=== PATIENT | female | born 1995 | race Caucasian/White ===

== ENCOUNTER 2017-01-25 21:35 | Inpatient (IN) | payer MEDICAID ==
[2017-01-25] MEDS ORDERED: XYLOCAINE 1% HCL 20 ML MDV IJ PRN (21:55)
[2017-01-25] MEDS ORDERED: PITOCIN 30 UNITS/ LR 500 ML 500 ML IV SCH (22:00)
[2017-01-25 22:19] LABS: BASOPHIL % 0.1 % (0.0-0.4); Eosinophil % 0.3 % (0.00-5.0); Granulocytes % 65.6 % (36.0-66.0); Lymphocytes % 21.3 % (24.0-44.0); Mean Cell Volume 99.5 fl (78-100); Mean Platelet Volume 10.4 fl (6-9.5); Monocytes % 12.7 % (0.0-12.0); Platelet Count 242 K/mm3 (150-450); Red Blood Count 4.01 M/mm3 (4.1-5.4); Red Cell Distribution Width 13.2 % (11.5-14.0); White Blood Count 9.5 K/mm3 (4.0-10.5)
[2017-01-25 22:22] LABS: Mean Corpuscular Hemoglobin 33.1 pg (26-32)
[2017-01-25] MEDS ORDERED: Dermoplast Spray TP PRN (23:30)
[2017-01-25] MEDS ORDERED: Mylicon 80MG PO PRN (23:30)
[2017-01-25] MEDS ORDERED: Dulcolax 10 MG SUPP PR PRN (23:30)
[2017-01-25] MEDS ORDERED: TUCKS TP PRN (23:30)
[2017-01-25] MEDS ORDERED: NORCO 5/325 MG PO PRN (23:30)
[2017-01-25] MEDS ORDERED: Anucort-HC SUPPOSITORY PR PRN (23:30)
[2017-01-25] MEDS ORDERED: LANSINOH 40 GM TOP PRN (23:30)
[2017-01-25] MEDS ORDERED: TYLENOL EXTRA STRENGTH 500 MG PO PRN (23:30)
[2017-01-25] MEDS ORDERED: CORTISONE 1% CREAM TP PRN (23:30)
[2017-01-26] MEDS ORDERED: Lactated Ringers 1,000 ML IV SCH (05:00)
[2017-01-26 05:43] LABS: Mean Cell Volume 100.8 fl (78-100); Mean Corpuscular Hemoglobin 33.4 pg (26-32); Mean Platelet Volume 10.5 fl (6-9.5); Platelet Count 205 K/mm3 (150-450); Red Blood Count 3.65 M/mm3 (4.1-5.4); White Blood Count 12.4 K/mm3 (4.0-10.5)
[2017-01-26] MEDS: MOTRIN 400 MG PO PRN ×2 (05:57→21:57)
[2017-01-26 07:08] LABS: ANISOCYTOSIS 1+; BAND 13 % (0.0-2.0); Metamyelocyte 1 %; Platelet Estimate NORMAL (NORMAL); Total Cells Counted 100
[2017-01-26] MEDS ORDERED: Adacel Vial IM ONE (10:00)
[2017-01-26] MEDS: Colace 100 MG PO SCH ×2 (10:21→21:54)
[2017-01-26] MEDS: FERREX 150 PO SCH (10:21)
--- NOTE | 2017-01-27 08:16 | PCM.DS ---
Discharge Summary Date of Admission: 01/25/17 21:35 Admitting Physician: BOOM RIOS Primary Care Provider: BOOM RIOS Allergies Allergies penicillin G Allergy (Verified 06/28/14 00:58) UNSURE WAS TOLD BY MOTHER Hospital Summary - Hospital Course Hospital Course: patient came in spontaneous labor and delivered a viable female over intact perineum, had a 1st degree left labial laceration repair. doing great, her infant. no problems, mild lochia and pain controlled. - Vitals & Intake/Output Vital Signs: Vital Signs Temperature 98.1 F 01/26/17 20:00 Pulse Rate 75 01/26/17 20:00 Respiratory Rate 18 01/27/17 02:00 Blood Pressure 129/74 01/26/17 20:00 O2 Sat by Pulse Oximetry Intake & Output: Intake & Output 01/24/17 01/25/17 01/26/17 01/27/17 11:59 11:59 11:59 11:59 Weight 72.121 kg - Lab Result Diagrams: 01/26/17 05:05 Lab Results-Last 24 Hrs: Lab Results-Last 24 Hours 01/26/17 Range/Units 07:33 Urine Opiates Level NEG. (NEGATIVE) Ur Methadone NEG. (NEGATIVE) Urine Barbiturates NEG. (NEGATIVE) Ur Phencyclidine (PCP) NEG. (NEGATIVE) Urine Amphetamine NEG. (NEGATIVE) U Benzodiazepine Level NEG. (NEGATIVE) Urine Cocaine NEG. (NEGATIVE) Urine Marijuana (THC) NEG. (NEGATIVE) Discharge Exam General Appearance: no apparent distress, alert Skin Exam: normal color, warm, dry Respiratory Exam: normal breath sounds, lungs clear, No respiratory distress Cardiovascular Exam: regular rate/rhythm, normal heart sounds Gastrointestinal/Abdomen Exam: soft, No tenderness, No mass Extremity Exam: normal inspection, normal range of motion Final Diagnosis/Problem List - Final Discharge Diagnosis/Problem (1) Spontaneous vaginal delivery Current Visit: No Status: Acute (2) Laceration of labia majora Current Visit: Yes Status: Acute - Discharge Disposition: Home, Self-Care Condition: Stable Prescriptions: Continue Vits W-Ca,Fe,FA(<1Mg) [] 1 each PO DAILY Follow up with: BOOM RIOS MD [Primary Care Provider] - 1 Week
[2017-01-27] MEDS: FERREX 150 PO SCH (10:34)
[2017-01-27] MEDS: Colace 100 MG PO SCH ×2 (10:34→23:10)
[2017-01-27 20:09] VITALS: BP 133/81; PULSE 81
== END 2017-01-27 23:20 | disposition home or self-care (01) | DRG 775 ==
LOC: OB 21:35 → OBSVTOIN 21:35
PROVIDERS: ADMIT Family Medicine; ATTEND Family Medicine
PROC: 10E0XZZ Delivery of Products of Conception, External Approach (ICD-10-PCS; principal; 2017-01-25)
PROC: 0HQ9XZZ Repair Perineum Skin, External Approach (ICD-10-PCS; 2017-01-25)
DX: O70.0 First degree perineal laceration during delivery (principal); Z3A.38 38 weeks gestation of pregnancy; Z37.0 Single live birth
CPT/HCPCS: 36415; 80307; 85025; 90471; 90715; G0378; J2590; A9270-GY

== ENCOUNTER 2018-02-07 21:05 | Emergency (ER) | payer MEDICAID, OTHER ==
[2018-02-07] MEDS ORDERED: Fluor-I-Strip/Ful-Flo OP ONE ×2 (21:47→22:27)
[2018-02-07] MEDS ORDERED: Eye-Stream Solution OP ONE (21:47)
--- NOTE | 2018-02-07 21:52 | ERPHSYRPT ---
- History of Present Illness Time Seen by Provider: 02/07/18 21:46 Source: patient Exam Limitations: no limitations Patient Subjective Stated Complaint: PT STATES SHE DROPPED A BOTTLE OF PEROXIDE AND IT SPLASHED IN HER EYES. STATES SHE FLUSHED WITH WATER IMMED AFTER, BUT STILL HAS SOME IRRITATION AND BURNING5 1 Triage Nursing Assessment: pt alert and oriented, answers questions approp. respirations nonlabored with lungs cta. pt ambulatory with steady gait noted. some redness noted to bilat eyes. no tearing noted. Physician History: 22-year-old white female arrives with complaint of splashing hydrogen peroxide into her both eyes symptoms at 9:00. Patient states she rinsed her eyes for approximately 1 minute before arrival. Complains of burning in both eyes no vision changes. Past medical history is negative Timing/Duration: today (9:00 this evening) Severity: moderate Modifying Factors: Improves With: other (rinsed both eyes with water) Associated Symptoms: other (burning pain in both eye), No nausea, No vomiting, No abdominal pain, No shortness of breath, No heartburn, No diaphoresis, No cough, No chills, No chest pain, No fever, No headaches, No loss of appetite, No malaise, No rash, No syncope, No seizure, No weakness Allergies/Adverse Reactions: penicillin G Allergy (Verified 02/07/18 21:41) UNSURE WAS TOLD BY MOTHER Home Medications: Vits W-Ca,Fe,FA(<1Mg) [] 1 each PO DAILY 06/28/14 [History] Hx Tetanus, Diphtheria Vaccination/Date Given: Yes Hx Influenza Vaccination/Date Given: No Hx Pneumococcal Vaccination/Date Given: No Immunizations Up to Date: Yes - Review of Systems Constitutional: No Fever, No Chills Eyes: Eye Pain, Other (splashing hydrogen peroxide in both eyes rinsed eyes with water for 1 minute afterwards) Ears, Nose, & Throat: No Symptoms Respiratory: No Cough, No Dyspnea Cardiac: No Chest Pain, No Edema, No Syncope Abdominal/Gastrointestinal: No Abdominal Pain, No Nausea, No Vomiting, No Diarrhea Genitourinary Symptoms: No Dysuria Musculoskeletal: No Back Pain, No Neck Pain Skin: No Rash Neurological: No Dizziness, No Focal Weakness, No Sensory Changes Psychological: No Symptoms Endocrine: No Symptoms All Other Systems: Reviewed and Negative - Past Medical History Pertinent Past Medical History: No Neurological History: No Pertinent History ENT History: No Pertinent History Cardiac History: No Pertinent History Respiratory History: No Pertinent History Endocrine Medical History: No Pertinent History Musculoskeletal History: No Pertinent History GI Medical History: No Pertinent History History: No Pertinent History Psycho-Social History: No Pertinent History Female Reproductive Disorders: No Pertinent History - Past Surgical History Past Surgical History: No Neuro Surgical History: No Pertinent History Cardiac: No Pertinent History Respiratory: No Pertinent History Gastrointestinal: No Pertinent History Genitourinary: No Pertinent History Musculoskeletal: No Pertinent History Female Surgical History: No Pertinent History - Social History Smoking Status: Never smoker Exposure to second hand smoke: No Drug Use: none Patient Lives Alone: No - Female History Hx Last Menstrual Period: irreg- last depo due in october- didnt get Hx Now: (unknown) - Nursing Vital Signs Nursing Vital Signs: Initial Vital Signs Temperature 99.1 F 02/07/18 21:25 Pulse Rate 97 H 02/07/18 21:25 Respiratory Rate 18 02/07/18 21:25 Blood Pressure 117/80 02/07/18 21:25 O2 Sat by Pulse Oximetry 99 02/07/18 21:25 Pain Scale Pain Intensity 1 - Physical Exam General Appearance: mild distress Eye Exam: PERRL/EOMI, other (Eyes PERRLA, EOMI, fundi are unremarkable, both sclerae are white, slight erythema both conjunctiva, both eyes 20/30 vision with glasses checked by nurse) Ears, Nose, Throat Exam: normal ENT inspection, TMs normal, pharynx normal, moist mucous membranes Neck Exam: normal inspection, non-tender, supple, full range of motion Respiratory Exam: normal breath sounds, lungs clear, No respiratory distress Cardiovascular Exam: regular rate/rhythm, normal heart sounds, normal peripheral pulses Gastrointestinal/Abdomen Exam: soft, normal bowel sounds, No tenderness, No mass Back Exam: normal inspection, normal range of motion, No CVA tenderness, No vertebral tenderness Extremity Exam: normal inspection, normal range of motion, pelvis stable Neurologic Exam: alert, oriented x 3, cooperative, oracle database administrator II-XII nml as tested, normal mood/affect, nml cerebellar function, nml station & gait, sensation nml, No motor deficits Skin Exam: normal color, warm, dry, No rash Lymphatic Exam: No adenopathy SpO2 Interpretation: normal (99%) SpO2: 99 Oxygen Delivery: Room Air - Course Nursing assessment & vital signs reviewed: Yes Ordered Tests: Active Orders 24 hr Category Date Time Status Visual Acuity STAT Care 02/07/18 21:47 Active Medication Summary Discontinued Medications Generic Name Dose Route Start Last Admin Trade Name Ameya PRN Reason Stop Dose Admin Eye Irrigation Solution 15 ml 02/07/18 21:47 02/07/18 22:28 Eye-Stream Solution OP 02/07/18 21:48 15 ml STAT ONE Administration Eye Irrigation Solution Confirm 02/07/18 22:27 Eye-Stream Solution Administered 02/07/18 22:28 Dose 30 ml .ROUTE .STK-MED ONE Fluorescein Sodium 1 mg 02/07/18 21:47 02/07/18 22:29 [id number]-Jlehg/Ful-Camacho OP 02/07/18 21:48 1 mg STAT ONE Administration Fluorescein Sodium Confirm 02/07/18 22:27 Ykiwj-S-Kdmgp/Ful-Camacho Administered 02/07/18 22:28 Dose 1 mg OP .STK-MED ONE - Progress Progress: improved Progress Note: 02/07/18 21:51 22-year-old white female arrives with complaint of bilateral eye pain since 9: 00 this evening. She states that she splashed hydrogen peroxide into both eyes at approximately 9 :00 she states she flushed her eye for approximately 1 minute thereafterwards. She complains of burning pain in both eyes. On physical I examination eyes PERRLA EOMI fundi are unremarkable sclera are white no visible corneal opacities or abrasions. Patient's conjunctiva mild erythema bilaterally. I have asked the nurse to go ahead and start having patient flushed her eyes and go ahead and contact poison control. I anticipate staining the patient's eyes with flourisceine to rule out abrasions. Will plan on irrigating again with sterile eyewash. 02/07/18 22:36 Poison control was contacted they recommended full 15 minutes of patient washing her eyes. Patient feeling better after flushing her eyes at eyewash station. Both eyes are stained with flouriscene, no corneal abrasions are noted. Both eyes are rinsed with sterile eye wash solution. Patient will be discharged she is feeling better. - Departure Time of Disposition: 22:38 Departure Disposition: Home Clinical Impression: Chemical exposure of eye Eye pain Qualifiers: Laterality: bilateral Qualified Code(s): H57.13 - Ocular pain, bilateral Condition: Fair Critical Care Time: No Referrals: BOOM RIOS MD [Primary Care Provider] - Additional Instructions: Return home. Rest. Follow-up with your family doctor or, physical science teacher if symptoms persist tomorrow. Return for acute distress or for severe symptoms
[2018-02-07] MEDS ORDERED: Eye-Stream Solution ONE (22:27)
[2018-02-07 22:57] VITALS: BP 112/70; PULSE 85; O2SAT 97
== END 2018-02-07 22:56 | disposition home or self-care (01) ==
LOC: ED 21:05
DX: H57.13 Ocular pain, bilateral (principal); Z77.098 Contact with and (suspected) exposure to other hazardous, chiefly nonmedicinal, chemicals
CPT/HCPCS: 99283; A9270-GY